=== PATIENT | female | born 1985 | race African-American/Black ===

== ENCOUNTER 2022-08-09 20:41 | Emergency (ER) | payer BC, SELFPAY ==
--- NOTE | ~2022-08-09 | XR_ITS ---
XR chest 1V DATE: 08/09/2022 21:42 INDICATION: Possible left breast abscess. Recent infection. TECHNIQUE: PA chest COMPARISON: None FINDINGS: Normal heart size. The right hilum is asymmetrically large. Recommend comparison with prior chest radiographs if available; otherwise consider CT thorax.. There may be calcified right hilar no pauly in addition to calcified right lower lobe pulmonary granuloma. No pulmonary infiltrate or consoli dation, pleural effusion or pulmonary vascular congestion or pneumothorax. Included skeletal structures are unremarkable. IMPRESSION: Asymmetric large right hilum; recommend comparison with prior chest radiographs. If not a vailable, consider CT thorax Reviewed, dictated and finalized at location A. IMPRESSION: Asymmetric large right hilum; recommend comparison with prior chest radiographs. If not available, consider CT thorax
--- NOTE | ~2022-08-09 | CT_ITS ---
Clinical Indication: Hilar mass, recent left breast biopsy CT Scan of the Chest with Contrast: Technique: Contiguous sections were acquired throughout the chest after intravenous administration of 75 cc of Omnipaque 350. Dose reduction technique was used on this scan by utilizing automated exposu re control and iterative reconstruction technique. The dose-length product (DLP) was 448.40 mGy-cm. Findings: There are mildly enlarged left axillary lymph nodes, largest node measuring 13 mm in short axis. Sugg estion of mild asymmetric soft tissue density or irregular mass in the subareolar region of the left breast as compared to the right side. Multiple calcified right hilar lymph nodes are present. No left hilar mass evident. There is no evidence of aortic dissection or aneurysm. There is no evidence of pleural or pericardial effusion. The lungs are clear, aside from right lower lobe calcified granuloma. Images through the upper abdomen reveal no abnormalities. Impression: Calcified right hilar lymphadenopathy, compatible prior granulomatous disease. Suspected asymmetric soft tissue density or irregular mass in the left subareolar region, with mildly enlarged left axillary lymph nodes. Findings could represent left breast carcinoma with early left a xillary guillermo metastatic disease. Correlate with reported recent left breast biopsy results. Reviewed, dictated and finalized at location . Impression: Calcified right hilar lymphadenopathy, compatible prior granulomatous disease. Suspected asymmetric soft tissue density or irregular mass in the left subareol ar region, with mildly enlarged left axillary lymph nodes. Findings could repre sent left breast carcinoma with early left axillary guillermo metastatic disease. C orrelate with reported recent left breast biopsy results.
[2022-08-09 20:48] VITALS: BP 141/81; PULSE 86; RESP 16; TEMP 36.6; O2SAT 99
[2022-08-09 21:34] LABS: Basophils Percent Auto 0.6 % (0.2-1.2); Eosinophils Absolute Auto 0.2 K/mm3 (0-0.3); Hematocrit 36.6 % (37.0-47.0); Hemoglobin 11.4 g/dL (12.0-15.0); Immature Granulocyte Absolute 0.01 K/mm3 (0.00-0.031); Immature Granulocyte Percent A 0.1 % (0-0.5); Lymphocytes Absolute Auto 3.03 K/mm3 (0.9-3.2); Mean Corpuscular HGB Conc 31.1 g/dl (32-36); Mean Corpuscular Hemoglobin 26.6 pg (26-34); Mean Corpuscular Volume 85.5 fl (80-100); Monocytes Absolute Auto 0.6 K/mm3 (0.1-0.6); Monocytes Percent Auto 8.8 % (2.6-8.5); Neutrophils Absolute Auto 3.1 K/mm3 (1.3-6.7); Neutrophils Percent Auto 44.5 % (45.5-73.1); Platelet Count Result 389 k/mm3 (150-375); Red Blood Count 4.28 M/mm3 (4.2-5.4); Red Cell Distribution Width 15.2 % (11.5-14.5); White Blood Count 7.1 K/mm3 (4.5-10.0)
[2022-08-09 21:44] LABS: Alanine Aminotransferase 20 U/L (6-35); Albumin Level 4.1 g/dL (3.5-5.1); Alkaline Phosphatase 71 U/L (38-126); Anion Gap 8 mmol/L (8-16); Aspartate Amino Transferase 23 U/L (14-36); Bilirubin,Total 0.4 mg/dL (0.2-1.3); Blood Urea Nitrogen 10 mg/dL (7-17); Calcium 8.2 mg/dL (8.4-10.2); Carbon Dioxide 23 mmol/L (22-30); Chloride 109 mmol/L (98-107); Estimated CRCL calculation 107 ml/min; Estimated Glomerular Filt Rate > 60; Glucose 103 mg/dL (65-110); Potassium 3.4 mmol/L (3.4-5.0); Sodium 140 mmol/L (137-145)
--- NOTE | 2022-08-10 00:22 | ED.GENADULT ---
HPI - General Adult General Chief complaint: Skin/Abscess/Foreign Body Stated complaint: Infection in left breast Time Seen by Provider: 08/10/22 00:16 History of Present Illness HPI narrative: Patient is a 37-year-old female who presents the emergency department with chief complaint of swelling in the left breast. Patient had a recent breast biopsy and had packing that was placed in her breast by surgeon at [facility] patient reports that she was seen in the office today to remove the packing and the wound was subsequently closed but her breast still feels swollen. Patient reports that she is concerned that the as developed a infection in her breast Related Data Allergies Allergy/AdvReac Type Severity Reaction Status Date / Time acetaminophen [From Percocet] Allergy Itching Verified 08/09/22 20:42 oxycodone [From Percocet] Allergy Itching Verified 08/09/22 20:42 Review of Systems Review of Systems: A 10 system review of systems was completed on the patient and is negative except for what is stated in the HPI. Nursing and ancillary documentation was reviewed. Exam Narrative: GENERAL: Well-appearing, well-nourished, and in no acute distress. HEAD: Normocephalic, atraumatic. EYES: PERRLA and EOMI. ENT: Nares clear, no rhinorrhea or epistaxis. Mucous membranes moist. NECK: Supple. CHEST: Clear to auscultation. No respiratory distress. HEART: Regular rate and rhythm. No murmur heard. Normal peripheral pulses. Chest: Left breast examined with retort furnace helper present there is not tender indurated area in the left lower quadrant of the breast on the left breast ABDOMEN: Soft, nontender, nondistended, normal active bowel sounds. EXTREMITIES: Normal range of motion. No edema. SKIN: Warm, dry, no rash. NEURO: No focal deficits. Alert and oriented x3. PSYCH: Normal mood and affect. Course Vital Signs Vital signs: Vital Signs Temperature 36.6 C 08/09/22 20:48 Pulse Rate 86 08/09/22 20:48 Respiratory Rate 16 08/09/22 20:48 Blood Pressure 141/81 H 08/09/22 20:48 Pulse Oximetry 99 08/09/22 20:48 Oxygen Delivery Room Air 08/09/22 20:48 Temperature 36.6 C 08/09/22 20:48 Pulse Rate 86 08/09/22 20:48 Respiratory Rate 16 08/09/22 20:48 Blood Pressure 141/81 H 08/09/22 20:48 Pulse Oximetry 99 08/09/22 20:48 Oxygen Delivery Room Air 08/09/22 20:48 Medical Decision Making MDM Narrative Medical decision making narrative: Differential diagnosis includes abscess, postsurgical changes, Laboratory studies were obtained which were within normal limits. Chest CT showed evidence of 4.3 cm nodularity hematoma versus mass Patient is currently on antibiotics Vital Signs Vital Signs: Vital Signs Temperature 36.6 C 08/09/22 20:48 Pulse Rate 86 08/09/22 20:48 Respiratory Rate 16 08/09/22 20:48 Blood Pressure 141/81 H 08/09/22 20:48 Pulse Oximetry 99 08/09/22 20:48 Oxygen Delivery Room Air 08/09/22 20:48 Temperature 36.6 C 08/09/22 20:48 Pulse Rate 86 08/09/22 20:48 Respiratory Rate 16 08/09/22 20:48 Blood Pressure 141/81 H 08/09/22 20:48 Pulse Oximetry 99 08/09/22 20:48 Oxygen Delivery Room Air 08/09/22 20:48 Lab Data 08/09/22 21:29 08/09/22 21:29 Labs: Lab Results 08/09/22 08/09/22 Range/Units 21:29 21:29 WBC 7.1 (4.5-10.0) K/mm3 RBC 4.28 (4.2-5.4) M/mm3 Hgb 11.4 L (12.0-15.0) g/dL Hct 36.6 L (37.0-47.0) % MCV 85.5 (80-100) fl MCH 26.6 (26-34) pg MCHC 31.1 L (32-36) g/dl RDW 15.2 H (11.5-14.5) % Plt Count 389 H (150-375) k/mm3 MPV 9.0 (7.4-10.4) fl Immature Gran % (Auto) 0.1 (0-0.5) % Neut % (Auto) 44.5 L (45.5-73.1) % Lymph % (Auto) 43.0 (18.3-44.2) % Evans % (Auto) 8.8 H (2.6-8.5) % Eos % (Auto) 3.0 (0-4.4) % Baso % (Auto) 0.6 (0.2-1.2) % Lymph # (Auto) 3.03 (0.9-3.2) K/mm3 Evans # (Auto) 0.6 (0.1-0.6) K/mm3 Eos # (Auto) 0.2 (0-0.
[2022-08-10 02:50] VITALS: BP 132/84; PULSE 79; RESP 16; O2SAT 100
== END 2022-08-10 02:51 | disposition home or self-care (01) ==
PROVIDERS: Preventive Medicine Aerospace Medicine; Emergency Provider Emergency Medicine
DX: N64.4 Mastodynia (principal); Z98.890 Other specified postprocedural states
CPT/HCPCS: 36415; 71045; 71260; 80053; 81025; 85025; 99284; Q9967